=== PATIENT | male | born 1945 | race Caucasian/White ===

== ENCOUNTER → 2023-09-19 09:04 | Outpatient (REF) | payer MEDICARE, BC, SELFPAY | LOC: HWRAD 09:04 | PROVIDERS: ATTENDING PHYSICIAN Specialist; FAMILY PHYSICIAN Family Medicine | DX: M25.512 Pain in left shoulder (principal) | CPT/HCPCS: 73200 ==

== ENCOUNTER 2023-11-09 08:49 | Inpatient (IN) | payer MEDICARE, BC, SELFPAY ==
--- NOTE | 2023-10-09 11:02 | CM ---
Patient is scheduled for an elective L Reverse TSA on 11/09/23. Spoke with patient prior to surgery. Introduced role of Orthopedic Navigator. Patient reports that he lives with his in a one story home. There is one step to enter. Currently he
functions independently. He does not use any DME. He has had VN services through [facility]. PCP is Dr. Mary Jo Sosa.
Discussed orthopedic program and post surgical plans. Patient will return home when directed by surgeon. Reviewed MD follow up and transition to outpatient therapy. Patient is in agreement with tentative plan and states that his will be home
with him and can assist if needed.
Patient will complete online education.
Plan: Orthopedic Navigator will be involved in the care of patient after surgery and will reassess discharge needs at that time.
[2023-10-12 10:09] VITALS: BMI 25.2
[2023-10-12 10:39] LABS: Hematocrit 40.4 % (39.0-52.0); Hemoglobin 14.1 g/dL (13.0-18.0); Mean Corp Hgb Conc. 34.9 g/dL (33.0-37.0); Mean Corpuscular Hgb 34.2 pg (27.0-31.0); Mean Corpuscular Volume 98.1 fL (80.0-94.0); Mean Platelet Volume 9.8 fL (7.4-10.4); Platelet Count 204 10^3/uL (130-400); Red Blood Cell Count 4.12 10^6/uL (4.70-6.10); Red Cell Dist. Width 11.6 % (11.5-14.5); White Blood Cell Count 4.1 10^3/uL (4.8-10.8)
[2023-10-12 11:33] LABS: ALT (SGPT) 17 U/L (0-50); AST (SGOT) 27 U/L (17-59); Albumin 4.1 g/dl (3.5-5.0); Alkaline Phosphatase 59 U/L (38-126); Blood Urea Nitrogen 14 mg/dl (9-20); Calcium 9.5 mg/dl (8.4-10.2); Carbon Dioxide 25 mmol/L (22-30); Chloride 101 mmol/L (98-107); Estimated Creatinine Clearance 65 ml/min; Glucose 88 mg/dl (70-99); Potassium 5.1 mmol/L (3.5-5.1); Sodium 133 mmol/L (135-145); Total Bilirubin 0.9 mg/dl (0.2-1.3); Total Protein 7.1 g/dl (6.3-8.2); eGFR > 60.00
[2023-10-12 12:37] LABS: Glycohemoglobin (HgbA1c) 5.1 % (4.0-5.6)
[2023-11-09] VITALS (14 sets, daily range): BP systolic 121–161; BP diastolic 68–91; PULSE 85; O2SAT 98; BMI 25.2
[2023-11-09] MEDS: CELEBREX 200 MG PO (08:08)
[2023-11-09] MEDS: TYLENOL 1000 MG PO (08:09)
[2023-11-09] MEDS: NORMOSOL-R 1000 IV ×2 (08:27→13:12)
--- NOTE | 2023-11-09 09:06 | CM ---
Reviewed chart. Patient admitted as planned for elective L Reverse TSA. The discharge plan is for patient to return home. He will have support from his when he goes home. Reviewed no need for VN services and transition to outpatient PT; patient
in agreement.
Patient will use [facility] pharmacy if additional discharge prescriptions are needed.
No needs currently identified.
[2023-11-09] MEDS: CRESTOR 20 MG PO (14:49)
[2023-11-09] MEDS: FLOMAX 0.4 MG PO ×2 (14:50→19:58)
[2023-11-09] MEDS: PROTONIX 40 MG PO ×2 (14:50→19:59)
[2023-11-09] MEDS: NEURONTIN PO (14:50)
[2023-11-09] MEDS: TYLENOL PO ×3 (14:50→23:27)
[2023-11-09] MEDS: NEURONTIN 300 MG PO ×2 (14:50→21:47)
[2023-11-09] MEDS: THIAMINE INJECTION 200 MG IV (15:03)
[2023-11-09] MEDS: TYLENOL 650 MG PO ×2 (15:04→20:00)
[2023-11-09] MEDS: ASPIRIN 325 MG PO (17:13)
[2023-11-09] MEDS: BACTROBAN 2% OINTMENT 1 APPLIC NASAL (19:57)
[2023-11-09] MEDS: ANCEF 5 IV (19:57)
[2023-11-09] MEDS: SENOKOT 17.2 MG PO (19:58)
[2023-11-09] MEDS: COLACE 100 MG PO (19:59)
[2023-11-09] MEDS: SERAX 15 MG PO (19:59)
[2023-11-10] MEDS: ANCEF 5 IV (03:01)
[2023-11-10 03:08] VITALS: BP 124/78
[2023-11-10] MEDS: TYLENOL PO (04:55)
[2023-11-10 07:53] VITALS: BP 139/88
--- NOTE | 2023-11-10 08:04 | W.PN.ORTHO ---
Today's Communication / Plan
-
POD #1 s/p left reverse TSA.
Sling in place night time nanny x 2 weeks.
NWB LUE.
PT/OT to tolerance. Demonstrated ROM exercises to start as soon as able.
ASA 325 mg po daily x 4 weeks for DVT prophylaxis.
F/u in office in 2 weeks for 1st post op visit.
Dressing to remain in place x 2 weeks.
Stable for d/c home today.
Assessment
.
Distal Motor Intact: Yes
Dressing:
Clean, dry and intact.
Assessment:
POD #1 s/p left reverse TSA.
Sling in place night time nanny x 2 weeks.
NWB LUE.
PT/OT to tolerance. Demonstrated ROM exercises to start as soon as able.
ASA 325 mg po daily x 4 weeks for DVT prophylaxis.
F/u in office in 2 weeks for 1st post op visit.
Dressing to remain in place x 2 weeks.
Stable for d/c home today.
Plan
.
Surgery / Date: 11/09/[address] Vasquez
DVT Prophylaxis: Aspirin
Activity:
Out of bed.
PT/OT
Discharge Plan: Home
Subjective
.
.:
Patient resting comfortably. Denies any issues with the left shoulder. Eager to go home.
Vital Signs and Labs
.
Vital Signs and Labs:
Lab Results
10/12/23 08:43
10/12/23 08:43
Temp Pulse Resp BP Pulse Ox
97.3 F 83 14 139/88 92
11/10/23 03:08 11/10/23 07:53 11/10/23 07:53 11/10/23 07:53 11/10/23 07:53
Non-invasive Hgb result: 12.1
Physical Exam
-
Left shoulder: Aquacel dressing is c/d/i, minimal sanguinous drainage noted at distal dressing. Mild diffuse swelling. ROM shoulder not tested. Sling in place. Good ROM elbow/wrist/hand. N/v intact distally.
--- NOTE | 2023-11-10 08:07 | W.DS.TRANS ---
DC Summary - Security Inspector
-
Discharge Instructions:
Sleep Apnea Risk Intermediate
Discharge Diagnosis/Procedures Reverse left shoulder replacement
Diet As tolerated
Activity As tolerated
Driving Restrictions No driving
Bathing Restrictions OK to Shower
Wound Care Leave Aquacel dressing in place until 2 weeks
post-op visit
Instructions:
Stand-Alone Forms: Total Shoulder Replacement D/C
Changes to Home Medications: No
Discharge Medications:
DC Medications w/original date entered in [employer]
acetaminophen 500 mg tablet 1,000 mg PO Q6H PRN pain 11/06/23
amlodipine 5 mg tablet 5 mg PO DAILY Blood Pressure 11/06/23
aspirin 81 mg tablet,delayed release 81 mg PO DAILY Blood Clot Prevention/Tx 11/06/23
ferrous sulfate 324 mg (65 mg iron) tablet,delayed release 324 mg PO DAILY Supplement 11/06/23
irbesartan 300 mg tablet 300 mg PO HS Blood Pressure 11/06/23
mecobalamin (vitamin B12) 1 dose IM MONTHLY Supplement 11/06/23
rosuvastatin 20 mg tablet 20 mg PO DAILY High Cholesterol 11/06/23
tamsulosin 0.4 mg capsule 0.4 mg PO HS Urinary Issue 11/06/23
thiamine HCl (vitamin B1) 100 mg tablet 125 mg PO DAILY Supplement 11/06/23
aspirin 325 mg tablet 325 mg PO DAILY PRN Blood clot prevention 30 days #30 tabs 11/09/23
celecoxib 100 mg capsule 200 mg (2 x 100 mg) PO BID Blood clot prevention/tx 14 days #56 caps 11/09/23
dexamethasone 4 mg tablet 4 mg PO BID #6 tabs 11/09/23
docusate sodium 100 mg capsule 100 mg PO BID 14 days #28 caps 11/09/23
oxycodone 5 mg tablet 5 mg PO Q4HPRN PRN moderate pain 14 days #28 tabs 11/09/23
sennosides 8.6 mg tablet (Senna Laxative) 17.2 mg (2 x 8.6 mg) PO BID 14 days #56 tabs 11/09/23
Home Medication Changes
Pending Results: No
[2023-11-10] MEDS: ASPIRIN 325 MG PO (08:19)
[2023-11-10] MEDS: BACTROBAN 2% OINTMENT 1 APPLIC NASAL (08:19)
[2023-11-10] MEDS: CRESTOR 20 MG PO (08:20)
[2023-11-10] MEDS: FLOMAX 0.4 MG PO (08:20)
[2023-11-10] MEDS: NEURONTIN 300 MG PO (08:20)
[2023-11-10] MEDS: TYLENOL 650 MG PO (08:20)
[2023-11-10] MEDS: COLACE 100 MG PO (08:20)
[2023-11-10] MEDS: SERAX 15 MG PO (08:20)
[2023-11-10] MEDS: SENOKOT 17.2 MG PO (08:20)
[2023-11-10] MEDS: PROTONIX 40 MG PO (08:20)
[2023-11-10] MEDS: CELEBREX 200 MG PO (08:20)
[2023-11-10] MEDS: FEOSOL 325 MG PO (08:20)
[2023-11-10] MEDS: THIAMINE INJECTION 200 MG IV (08:21)
[2023-11-10 08:52] VITALS: BP 116/62; PULSE 87
[2023-11-10 11:51] VITALS: BP 115/72
--- NOTE | 2023-11-10 15:20 | CM ---
IMM issued and signed.
Pt dc with his . No needs identified.
== END 2023-11-10 13:35 | disposition home or self-care (01) | DRG 483 ==
LOC: 2 SOUTH 08:49
PROVIDERS: ADMITTING PHYSICIAN Specialist; FAMILY PHYSICIAN Family Medicine
PROC: 0RRK00Z Replacement of Left Shoulder Joint with Reverse Ball and Socket Synthetic Substitute, Open Approach (ICD-10-PCS; 2023-11-09)
DX: M19.012 Primary osteoarthritis, left shoulder (principal); F10.10 Alcohol abuse, uncomplicated; I10 Essential (primary) hypertension; I73.9 Peripheral vascular disease, unspecified; I25.10 Atherosclerotic heart disease of native coronary artery without angina pectoris; Z96.611 Presence of right artificial shoulder joint; Z86.73 Personal history of transient ischemic attack (TIA), and cerebral infarction without residual deficits; Z79.82 Long term (current) use of aspirin
CPT/HCPCS: 36415; 73020; 80053; 83036; 85027; 87070; 97166; 97535

== ENCOUNTER → 2024-09-26 08:53 | Outpatient (REF) | payer OTHER, SELFPAY ==
[2024-09-26 12:30] LABS: % Basophils 0.6 % (0-2); % Eosinophils 8.9 % (0-6); % Immature Granulocytes 0.9 % (0-0.5); % Lymphocytes 30.2 % (20.5-51.1); % Monocytes 10.1 % (1.7-9.3); % Neutrophils 49.3 % (42.2-75.2); Absolute Eosinophils 0.3 10^3/uL (0-0.7); Absolute Lymphocytes 1.1 10^3/uL (1.2-3.4); Absolute Monocytes 0.4 10^3/uL (0.1-0.6); Absolute Neutrophils 1.7 10^3/uL (1.4-6.5); Hematocrit 38.5 % (39.0-52.0); Hemoglobin 13.2 g/dL (13.0-18.0); Mean Corp Hgb Conc. 34.3 g/dL (33.0-37.0); Mean Corpuscular Hgb 34.5 pg (27.0-31.0); Mean Corpuscular Volume 100.5 fL (80.0-94.0); Mean Platelet Volume 9.9 fL (7.4-10.4); Nucleated Red Blood Cells % 0 % (-); Platelet Count 197 10^3/uL (130-400); Red Blood Cell Count 3.83 10^6/uL (4.70-6.10); Red Cell Dist. Width 11.9 % (11.5-14.5); White Blood Cell Count 3.5 10^3/uL (4.8-10.8)
[2024-09-26 13:03] LABS: ALT (SGPT) 18 U/L (0-50); AST (SGOT) 27 U/L (17-59); Alkaline Phosphatase 49 U/L (38-126); Blood Urea Nitrogen 10 mg/dl (9-20); Calcium 9.2 mg/dl (8.4-10.2); Carbon Dioxide 24 mmol/L (22-30); Chloride 106 mmol/L (98-107); Glucose 77 mg/dl (70-99); HDL Cholesterol 83 mg/dl; LDL Cholesterol, Calculated 32 mg/dl; Potassium 4.6 mmol/L (3.5-5.1); Sodium 136 mmol/L (135-145); Total Bilirubin 0.6 mg/dl (0.2-1.3); Total Cholesterol 129 mg/dl (50-199); Total Protein 7.1 g/dl (6.3-8.2); Triglyceride 74 mg/dl (10-149); Very Low Density Lipoprotein 14 mg/dl (0-30); eGFR > 60.00
[2024-09-26 15:20] LABS: Vitamin B12 741 pg/ml (239-931)
== END ==
LOC: HWLAB 08:53
PROVIDERS: ATTENDING PHYSICIAN Family Medicine
DX: E53.8 Deficiency of other specified B group vitamins (principal); I73.9 Peripheral vascular disease, unspecified; R73.01 Impaired fasting glucose; Z00.00 Encounter for general adult medical examination without abnormal findings; I10 Essential (primary) hypertension
CPT/HCPCS: 36415; 80053; 80061; 82607; 85025

== ENCOUNTER → 2024-10-03 09:46 | Outpatient (REF) | payer OTHER, SELFPAY ==
[2024-10-03 11:38] LABS: % Basophils 0.5 % (0-2); % Eosinophils 6.8 % (0-6); % Immature Granulocytes 0.5 % (0-0.5); % Lymphocytes 24.6 % (20.5-51.1); % Monocytes 11.1 % (1.7-9.3); % Neutrophils 56.5 % (42.2-75.2); Absolute Eosinophils 0.3 10^3/uL (0-0.7); Absolute Monocytes 0.4 10^3/uL (0.1-0.6); Absolute Neutrophils 2.3 10^3/uL (1.4-6.5); Hematocrit 38.4 % (39.0-52.0); Hemoglobin 13.1 g/dL (13.0-18.0); Mean Corp Hgb Conc. 34.1 g/dL (33.0-37.0); Mean Corpuscular Hgb 34.2 pg (27.0-31.0); Mean Corpuscular Volume 100.3 fL (80.0-94.0); Mean Platelet Volume 10.2 fL (7.4-10.4); Nucleated Red Blood Cells % 0 % (-); Platelet Count 169 10^3/uL (130-400); Red Blood Cell Count 3.83 10^6/uL (4.70-6.10); Red Cell Dist. Width 11.9 % (11.5-14.5)
== END ==
LOC: HWLAB 09:46
PROVIDERS: ATTENDING PHYSICIAN Family Medicine
DX: R79.89 Other specified abnormal findings of blood chemistry (principal)
CPT/HCPCS: 36415; 84155; 84165; 85025